=== PATIENT | male | born 1975 | race Caucasian/White ===

== ENCOUNTER 2024-11-12 15:28 | Emergency (ER) | payer BC ==
[2024-11-12] MEDS: Ketorolac 30 MG/ML SDV IM ONE (16:52)
== END 2024-11-12 16:56 | disposition home or self-care (01) ==
LOC: JD.ED 15:28
DX: S43.101A Unspecified dislocation of right acromioclavicular joint, initial encounter (principal); Z88.0 Allergy status to penicillin; W05.1XXA Fall from non-moving nonmotorized scooter, initial encounter
CPT/HCPCS: 73030; 96372; 99283; J1885